=== PATIENT | female | born 1995 | race Caucasian/White ===

== ENCOUNTER 2020-05-10 08:46 | Emergency (ER) | payer OTHER, SELFPAY ==
--- NOTE | ~2020-05-10 | XR_ITS ---
EXAMINATION: XR knee RT min 4V DATE: 05/10/2020 09:31 INDICATION: Possible infection, laceration TECHNIQUE: Four views of the right knee were obtained. COMPARISON: None. FINDINGS: Alignment is normal. No fracture or osteochondral lesion. Joint spaces are normal with no e rosions. No joint effusion/synovitis. Soft tissues are unremarkable. IMPRESSION: 1. No acute osseous abnormality. Reviewed, dictated and finalized at location A.
[2020-05-10 08:53] VITALS: BP 152/88; PULSE 90; RESP 18; TEMP 37.4; O2SAT 100
--- NOTE | 2020-05-10 09:15 | ED.GENADULT ---
HPI - General Adult General Chief complaint: Extremity Injury, Lower Stated complaint: right knee pain/swollen Time Seen by Provider: 05/10/20 09:15 Source: patient and RN notes reviewed Mode of arrival: ambulatory Limitations: no limitations History of Present Illness HPI narrative: 25-year-old female presents with concern for right knee pain, redness, difficulty straightening her knee, knee swelling. She denies recent knee injury, fall. Reports 2 weeks ago she bumped her leg on a coffee table causing a laceration to the right knee. Reports that she did not seek treatment for the laceration, she later reopen the laceration when she bumped it again, then the laceration healed on its own. Reports yesterday morning she noticed redness, pain to the right knee, difficulty straightening the knee. Reports she has been using ice. Denies malaise, fatigue, body aches. Reports the pain radiates up to the mid thigh, down to the mid calf. MD complaint: Right knee pain Related Data Home Medications Medication Instructions Recorded Confirmed No Home Medications 05/10/20 05/10/20 Allergies Allergy/AdvReac Type Severity Reaction Status Date / Time amoxicillin Allergy Rash Verified 05/10/20 09:06 Review of Systems Review of Systems: Narrative: CONSTITUTIONAL: Denies malaise, chills, sweats, or fever. CARDIOVASCULAR: Denies chest pain, palpitations RESPIRATORY: Denies dyspnea. SKIN: Reports right knee any redness, swelling. Denies open skin MUSCULOSKELETAL: Reports right knee pain, difficulty straightening NEUROLOGIC: Denies numbness, weakness. All systems reviewed & are unremarkable except as noted in HPI and below PMFSH Comments At time of signature, agree with nursing past medical, surgical, social and family history. There is no relevant family history pertinent to the presenting complaint Exam Narrative: Exam Narrative: GENERAL: Well-appearing, well-nourished, and in no acute distress. HEAD: Normocephalic, atraumatic. EYES: PERRLA, conjunctivae clear NECK: Supple. CHEST: Speaks in full sentences. No respiratory distress. HEART: Regular rate and rhythm. Normal and equal peripheral pulses. EXTREMITIES: Right knee has normal strength and sensation, limited range of motion, patient unable to fully bend the knee. Right knee edema, erythema. Normal sensation with sensitivity to light touch and pain. No open wounds, no skin tenting, no devitalized tissue or atrophy, no trophic changes, no ecchymosis, no obvious deformity, alignment normal, generalized tenderness, nearby joints and structures intact. Distal pulses palpable and equal bilaterally, skin warm, dry, pink. Capillary refill less than 3 seconds. SKIN: Warm, dry. Right knee erythematous NEURO: Alert and oriented x3. PSYCH: Normal mood and affect Course Course Emergency Course: Patient is aware of diagnosis, understands and agrees to treatment plan. Anticipatory guidance given. Patient agrees to follow-up as directed and is aware of reasons to seek care at the emergency department. Portions of this record may have been created with voice recognition software Vital Signs Vital signs: Vital Signs Temperature 99.3 F 05/10/20 08:53 Pulse Rate 90 05/10/20 08:53 Respiratory Rate 18 05/10/20 08:53 Blood Pressure 152/88 H 05/10/20 08:53 Pulse Oximetry 100 05/10/20 08:53 Temperature 99.3 F 05/10/20 08:53 Pulse Rate 90 05/10/20 08:53 Respiratory Rate 18 05/10/20 08:53 Blood Pressure 152/88 H 05/10/20 08:53 Pulse Oximetry 100 05/10/20 08:53 Reviewed. Patient has been instructed to follow up with her primary care provider within the next week regarding her elevated blood pressure today. Transfer Transfered to: [facility] Transportation: Other (Private vehicle) Transfer rationale: Rule out septic arthritis Accepting physician: Dr. Griffin Transfer comments: Patient stable for transfer via private vehicle Medical Decision Luisa
[2020-05-10 10:05] VITALS: BP 110/80; TEMP 37.4
== END 2020-05-10 10:05 | disposition short-term general hospital (02) ==
PROVIDERS: Emergency Provider Nurse Practitioner
DX: M25.461 Effusion, right knee (principal)
CPT/HCPCS: 73564; 99213; G0463

== ENCOUNTER 2021-05-20 09:19 | Emergency (ER) | payer OTHER, SELFPAY ==
--- NOTE | ~2021-05-20 | CT_ITS ---
EXAMINATION: CTA chest PE protocol DATE: 05/20/2021 10:52 INDICATION: Sudden onset shortness of breath TECHNIQUE: Computed tomography angiography (CTA) of the chest was performed with 100 mL Omnipaque-350 intravenous contrast timed to evaluate the pulmonary arteries. Coronal maximum intensity projection 3D-reconstructions were created by the technologist. The dose-length product (DLP) was 281.64 mGy-cm. Automated exposure control and iterative reconstruction technique were employed. COMPARISON: None. FINDINGS: The pulmonary arteries are well-opacified. No pulmonary embolism is identified. There is mi ld dependent atelectasis. A 3 mm nodule of the right middle lobe likely represents granulomatous dise ase. There is a small hiatal hernia. No pleural effusion or pneumothorax is identified. The heart siz e is normal. Triangular soft tissue in the anterior mediastinum likely represents residual thymus. IMPRESSION: 1. No pulmonary embolism or acute cardiopulmonary abnormality. Reviewed, dictated and finalized at location A.
--- NOTE | ~2021-05-20 | XR_ITS ---
EXAMINATION: XR chest 2V DATE: 05/20/2021 09:50 INDICATION: Shortness of breath TECHNIQUE: Frontal and lateral views of the chest are obtained COMPARISON: None available FINDINGS: The lungs are free of acute opacities. There is no pleural effusion or pneumothorax. The ca rdiomediastinal silhouette is normal. The visualized bones and soft tissues are unremarkable. IMPRESSION: 1. No acute cardiopulmonary abnormality. Reviewed, dictated and finalized at location A.
[2021-05-20 09:25] VITALS: BP 128/63; PULSE 107; RESP 16; O2SAT 100
--- NOTE | 2021-05-20 09:29 | ECG_ITS ---
Measurements Intervals [place] Rate: 86 P: 44 IN: 125 QRS: 39 QRSD: 86 T: 22 QT: 335 QTc: 401 Interpretive Statements SINUS RHYTHM INCOMPLETE RIGHT BUNDLE BRANCH BLOCK BASELINE ARTIFACT- I, II, III, AVR, AVL, AVF, V1, V3-V6 BORDERLINE ECG Electronically Signed On 05-20-2021 11:49:00 CDT by Amauri Ramirez D.O.
[2021-05-20 09:32] VITALS: O2SAT 100
[2021-05-20 09:33] VITALS: PULSE 85
[2021-05-20 09:39] LABS: Basophils Absolute Auto 0.1 K/mm3 (0.0-0.1); Basophils Percent Auto 0.5 % (0.2-1.2); Eosinophils Absolute Auto 0.1 K/mm3 (0-0.3); Eosinophils Percent Auto 0.6 % (0-4.4); Hematocrit 37.4 % (37.0-47.0); Hemoglobin 12.9 g/dL (12.0-15.0); Immature Granulocyte Absolute 0.11 K/mm3 (0.00-0.031); Lymphocytes Absolute Auto 2.15 K/mm3 (0.9-3.2); Mean Corpuscular HGB Conc 34.5 g/dl (32-36); Mean Platelet Volume 11.5 fl (7.4-10.4); Monocytes Absolute Auto 0.5 K/mm3 (0.1-0.6); Monocytes Percent Auto 4.1 % (2.6-8.5); Neutrophils Absolute Auto 8.4 K/mm3 (1.3-6.7); Neutrophils Percent Auto 74.8 % (45.5-73.1); Platelet Count Result 213 k/mm3 (150-375); Red Cell Distribution Width 12.8 % (11.5-14.5); White Blood Count 11.3 K/mm3 (4.5-10.0)
[2021-05-20 09:47] LABS: Anion Gap 10 mmol/L (8-16); Blood Urea Nitrogen 6 mg/dL (7-17); Calcium 9.6 mg/dL (8.4-10.2); Carbon Dioxide 21 mmol/L (22-30); Chloride 105 mmol/L (98-107); Estimated CRCL calculation 153 ml/min; Estimated Glomerular Filt Rate > 60; Glucose 88 mg/dL (65-110); Potassium 4.3 mmol/L (3.4-5.0); Sodium 136 mmol/L (137-145)
[2021-05-20 09:50] LABS: D Dimer 0.53 ug/mL (<0.48)
[2021-05-20] MEDS: SODIUM CHLORIDE 0.9% IV 1,000 ML 999 ML IV CONT (10:36)
[2021-05-20 11:28] LABS: Add Urine Microscopic? YES; Appearance Urine Clear (Clear); Bilirubin Urine Negative (Negative); Blood Urine Negative (Negative); Color Urine Yellow (Yellow); Glucose Urine UA Negative (Negative); Ketones Urine Trace mg/dL (Negative); Leukocyte Esterase Ur 2+ LEU/UL (Negative); Mucus Urine Rare /lpf; Nitrate Urine Negative (Negative); Protein Urine Negative (Negative); RBC Urine 0-2 /hpf (0-2); Specific Grav Ur 1.009 (1.001-1.035); Squamous Epithelial Cell Urine Rare /hpf (Few); Urobilinogen Urine Negative mg/dL (<2.0); WBC Urine 0-3 /hpf
--- NOTE | 2021-05-20 13:14 | ED.SOB ---
HPI - SOB/Dyspnea General Chief Complaint: Shortness of Breath/Dyspnea Stated Complaint: Upper Chest and Neck Pain Time Seen by Provider: 05/20/21 09:40 Source: patient Mode of arrival: ambulatory Limitations: no limitations History of Present Illness HPI Narrative: Patient is a 26-year-old female who presents complaining of sudden onset of shortness of breath starting last p.m. She reports increased shortness of breath with exertion. She reports chest feels sore . She reports a history of Covid approximately 6 months ago, patient is unvaccinated for Covid at this time. Patient is 19 weeks . She denies other significant medical history. She denies taking over the counter medications prior to arrival. Patient's OBGYN is Dr. Beer. LUX elicited complaint: shortness of breath Related Data Home Medications Medication Instructions Recorded Confirmed labetalol 05/20/21 Allergies Allergy/AdvReac Type Severity Reaction Status Date / Time amoxicillin Allergy Rash Verified 05/20/21 09:28 Review of Systems Review of Systems: CONSTITUTIONAL: Denies fever, chills, or sweats. EYES: Denies visual changes, redness, or discharge. ENT: Denies rhinorrhea, congestion, sore throat, or otalgia. CARDIOVASCULAR: Denies chest pain, palpitations, or edema. RESPIRATORY: Reports shortness of breath GASTROINTESTINAL: Denies abdominal pain, nausea, vomiting, or diarrhea. GENITOURINARY: Denies dysuria or hematuria. SKIN: Denies rash or itching. MUSCULOSKELETAL: Denies back pain, joint pain, or myalgia. NEUROLOGIC: Denies headache, numbness, dizziness, or weakness. PSYCHIATRIC: Denies anxiety or depression. [facility] Social History Social History (Updated 05/20/21 @ 13:29 by STELLA Boyd) Smoking status: Never smoker Alcohol intake: never Substance use: never Living arrangements: with family Occupation/Education: occupation Gender identity (if verbalized by the patient): Female Comments At the time of signature, I have reviewed and agree with nursing past medical, surgical, social, and family history unless otherwise noted. Please see nursing chart for further information. There is no relevant family history pertinent to the presenting complaint. Exam Narrative: GENERAL: Well-appearing, well-nourished, and in no acute distress. HEAD: Normocephalic, atraumatic. EYES: EOMI. No redness or drainage. Conjunctiva are normal. ENT: Mucous membranes pink and moist. CHEST: No respiratory distress. Clear to auscultation. HEART: Regular rate and rhythm. No murmur appreciated. Normal peripheral pulses. EXTREMITIES: Normal range of motion. No edema. SKIN: Warm, dry, no rash. NEURO: No focal deficits. Alert and oriented x3. Gait steady. PSYCH: Normal affect. No signs of depression or anxiety. Course Course Emergency Course: Patient has mild leukocytosis. D-dimer elevated. CT chest completed as with patient's complaints, positive D-dimer, initial tachycardia and history of Covid. CT negative for PE at this time. Discussed with patient the need for follow-up with Dr. Hagen. Discussed with Dr. Carter who agrees with plan of care. Patient is stable for discharge home with outpatient follow-up as discussed. Vital Signs Vital signs: Vital Signs Pulse Rate 107 H 05/20/21 09:25 Respiratory Rate 16 05/20/21 09:25 Blood Pressure 128/63 05/20/21 09:25 Pulse Oximetry 100 05/20/21 09:25 Pulse Rate 85 05/20/21 09:33 Respiratory Rate 16 05/20/21 09:25 Blood Pressure 128/63 05/20/21 09:25 Pulse Oximetry 100 05/20/21 09:32 MDM - SOB/Dyspnea MDM Narrative Medical decision making narrative: Patient has mild leukocytosis. D-dimer elevated. CT chest completed as with patient's complaints, positive D-dimer, initial tachycardia and history of Covid. CT negative for PE at this time. Discussed with patient the need for follow-up with Dr. Hagen. Discussed with Dr. Carter who agrees with plan of care. Patient is s
[2021-05-20 13:47] VITALS: BP 128/66; PULSE 82; RESP 18; O2SAT 100
== END 2021-05-20 13:48 | disposition home or self-care (01) ==
PROVIDERS: Emergency Medicine; Emergency Provider Nurse Practitioner
DX: O26.91 Pregnancy related conditions, unspecified, first trimester (principal); R06.02 Shortness of breath; Z3A.19 19 weeks gestation of pregnancy
CPT/HCPCS: 36415; 71046; 71275; 80048; 81001; 85025; 85380; 93005; 96360; 99284; J7030; Q9967

== ENCOUNTER 2021-08-26 15:29 | Outpatient (CLI) | payer OTHER, SELFPAY ==
--- NOTE | ~2021-08-26 | US_ITS ---
EXAMINATION: US right upper quadrant EXAM DATE: 08/26/2021 17:30 INDICATION: RUQ pain, . TECHNIQUE: Multiple grayscale and Doppler images of the abdomen right upper quadrant were obtained (b y a technologist who performed the scan) and subsequently reviewed. There is no prior study for crescencio reich. FINDINGS: The pancreatic head and body are normal in appearance. The pancreatic tail is not visualized. The l iver has normal echogenicity and contour. There are no focal liver lesions identified. There is no evidence of intrahepatic biliary duct dilation. Portal venous flow was seen in the hepatopedal, nor mal direction and has normal Doppler waveform. No right-sided hydronephrosis. Common bile duct measures 3 mm, which is normal. The gallbladder wall is normal in thickness, with ex pected amount of distention. No sonographic evidence of pericholecystic fluid. There is no cholelit hiases. Technologist performing exam reports patient did not demonstrate sonographic Rosas's sign. Please note that this sign is less reliable in patients who have received pain medication. IMPRESSION: 1. Unremarkable abdominal ultrasound exam. Reviewed, dictated and finalized at location A. [employer] INSTRU[employer]
[2021-08-26 16:01] VITALS: BP 142/71; PULSE 98
[2021-08-26 16:10] LABS: Basophils Absolute Auto 0.1 K/mm3 (0.0-0.1); Basophils Percent Auto 0.5 % (0.2-1.2); Eosinophils Absolute Auto 0.1 K/mm3 (0-0.3); Eosinophils Percent Auto 0.7 % (0-4.4); Hematocrit 37.4 % (37.0-47.0); Hemoglobin 13.2 g/dL (12.0-15.0); Immature Granulocyte Absolute 0.36 K/mm3 (0.00-0.031); Immature Granulocyte Percent A 2.2 % (0-0.5); Lymphocytes Absolute Auto 3.82 K/mm3 (0.9-3.2); Lymphocytes Percent Auto 23.7 % (18.3-44.2); Mean Corpuscular HGB Conc 35.3 g/dl (32-36); Mean Corpuscular Hemoglobin 31.7 pg (26-34); Mean Corpuscular Volume 89.7 fl (80-100); Mean Platelet Volume 11.6 fl (7.4-10.4); Monocytes Absolute Auto 0.7 K/mm3 (0.1-0.6); Neutrophils Absolute Auto 11.1 K/mm3 (1.3-6.7); Neutrophils Percent Auto 68.9 % (45.5-73.1); Platelet Count Result 192 k/mm3 (150-375); Red Blood Count 4.17 M/mm3 (4.2-5.4); White Blood Count 16.1 K/mm3 (4.5-10.0)
[2021-08-26 16:14] LABS: Add Urine Microscopic? YES; Amorphous Sediment Urine Few; Appearance Urine Cloudy (Clear); Bacteria Urine Trace /hpf; Bilirubin Urine Negative (Negative); Blood Urine Negative (Negative); Color Urine Straw (Yellow); Glucose Urine UA Negative (Negative); Ketones Urine Negative (Negative); Leukocyte Esterase Ur 3+ LEU/UL (NEGATIVE); Nitrate Urine Negative (Negative); Protein Urine Negative (Negative); RBC Urine 0-2 /hpf (0-2); Specific Grav Ur 1.005 (1.001-1.035); Squamous Epithelial Cell Urine Few /hpf (Few); Urobilinogen Urine Negative mg/dL (<2.0)
[2021-08-26 16:15] VITALS: BP 126/72; PULSE 97
[2021-08-26 16:19] LABS: Total Protein Urine Random 16 mg/dL
[2021-08-26 16:23] LABS: Creatinine Urine 22.5 mg/dL; Ur Ttl Prot Creatinine Ratio 0.71 mg/mg (0-0.20)
[2021-08-26 16:23] LABS: Alanine Aminotransferase 29 U/L (4-35); Alkaline Phosphatase 66 U/L (38-126); Anion Gap 8 mmol/L (8-16); Aspartate Amino Transferase 27 U/L (14-36); Bilirubin,Total 0.4 mg/dL (0.2-1.3); Blood Urea Nitrogen 5 mg/dL (7-17); Calcium 8.9 mg/dL (8.4-10.2); Carbon Dioxide 22 mmol/L (22-30); Chloride 107 mmol/L (98-107); Estimated Glomerular Filt Rate > 60; Glucose 106 mg/dL (65-110); Potassium 3.8 mmol/L (3.4-5.0); Sodium 137 mmol/L (137-145)
[2021-08-26 16:30] VITALS: BP 127/70; PULSE 94
[2021-08-26 16:45] VITALS: BP 132/75; PULSE 89
--- NOTE | 2021-08-26 16:55 | PC.NURSE ---
Addendum entered by Kaylee Moreno RN 08/26/21 17:38: Results called to Dr. Valdivia. Original Note: Called Dr. Hoffman with lab results and BPs. Informed of RUQ pain with waves of increased pain and soreness in between. Orders received.
[2021-08-26 17:00] VITALS: BP 119/71; PULSE 90
== END 2021-08-26 17:50 | disposition home or self-care (01) ==
LOC: ANHOBOP 15:38 → ANHOBPP 15:39
PROVIDERS: Visit Provider Obstetrics & Gynecology
DX: O26.893 Other specified pregnancy related conditions, third trimester (principal); R10.11 Right upper quadrant pain; Z3A.33 33 weeks gestation of pregnancy
CPT/HCPCS: 36415; 59025; 76705; 80053; 81001; 82570; 84156; 84550; 85025; 87086; 99199

== ENCOUNTER 2021-08-27 18:24 | Outpatient (NON) | payer OTHER, SELFPAY ==
[2021-08-27 18:24] VITALS: BMI 31.3
[2021-08-27 19:23] LABS: Collection Time Urine 24 HOURS
[2021-08-27 19:24] LABS: Total Volume 24 Hour Urine 2800 ml
[2021-08-27 19:32] LABS: Creatinine Clearance Urine 170.6 ml/min (75-125); Creatinine Urine 49.9 mg/dL; Patient Weight 194 Lbs; Total Protein Urine 24 Hr 420 mg/24hr (28-141); Total Protein Urine Random 15 mg/dL
[2021-08-27 19:51] LABS: Specific Gravity Ur 1.005
== END 2021-08-27 18:25 | disposition home or self-care (01) ==
LOC: ANHOBOP 18:34
PROVIDERS: Visit Provider Obstetrics & Gynecology Gynecology
DX: R10.11 Right upper quadrant pain (principal)
CPT/HCPCS: 81050; 82575; 84156

== ENCOUNTER 2021-09-11 07:25 | Outpatient (RCR) | payer OTHER, SELFPAY ==
[2021-09-11 08:06] VITALS: BP 120/67
== END 2021-10-30 09:38 | disposition home or self-care (01) ==
LOC: ANHOBOP 07:25
PROVIDERS: Visit Provider Obstetrics & Gynecology
DX: O16.3 Unspecified maternal hypertension, third trimester (principal); Z3A.35 35 weeks gestation of pregnancy
CPT/HCPCS: 59025

== ENCOUNTER 2021-09-23 17:01 | Inpatient (IN) | payer OTHER, SELFPAY ==
[2021-09-23] VITALS (16 sets, daily range): BP systolic 100–144; BP diastolic 68–85; PULSE 83–99; RESP 18; TEMP 37; BMI 33.0
[2021-09-23 17:47] LABS: Hematocrit 38.7 % (37.0-47.0); Hemoglobin 13.5 g/dL (12.0-15.0); Mean Corpuscular HGB Conc 34.9 g/dl (32-36); Mean Corpuscular Hemoglobin 31.3 pg (26-34); Mean Corpuscular Volume 89.6 fl (80-100); Mean Platelet Volume 12.1 fl (7.4-10.4); Platelet Count Result 236 k/mm3 (150-375); Red Blood Count 4.32 M/mm3 (4.2-5.4); Red Cell Distribution Width 12.4 % (11.5-14.5); White Blood Count 16.5 K/mm3 (4.5-10.0)
[2021-09-23] MEDS: DINOPROSTONE 10 MG VAG INSERT VAGINAL (17:48)
[2021-09-23 17:57] LABS: Uric Acid 3.2 mg/dL (2.5-7.5)
[2021-09-23 17:59] LABS: Alanine Aminotransferase 31 U/L (4-35); Albumin Level 3.8 g/dL (3.5-5.1); Alkaline Phosphatase 102 U/L (38-126); Anion Gap 8 mmol/L (8-16); Aspartate Amino Transferase 29 U/L (14-36); Bilirubin,Total 0.4 mg/dL (0.2-1.3); Blood Urea Nitrogen 10 mg/dL (7-17); Calcium 9.2 mg/dL (8.4-10.2); Carbon Dioxide 20 mmol/L (22-30); Chloride 105 mmol/L (98-107); Estimated Glomerular Filt Rate > 60; Glucose 86 mg/dL (65-110); Potassium 3.9 mmol/L (3.4-5.0); Sodium 133 mmol/L (137-145)
[2021-09-23 18:26] LABS: Atypical Lymphocytes Present; Band Neutrophils Percent 3 % (0-6); Eosinophils Absolute Manual 0.16 K/mm3 (0.02-0.5); Eosinophils Percent Manual 1 % (0-4); Lymphocytes Absolute Manual 4.95 K/mm3 (1.1-4.5); Monocytes Absolute Manual 0.82 K/mm3 (0.1-0.90); Monocytes Percent Manual 5 % (3-9); Neutrophils Absolute Manual 10.56 K/mm3 (1.7-7.2); Neutrophils Percent Manual 61 % (46-73); Platelet Estimate Adequate (Adequate); Total Cells Counted 100
--- NOTE | 2021-09-23 18:33 | LDADM ---
This patient, Shanika Gorman, was admitted to Labor/Delivery/Recovery 105 on 09/23/21 at 17:01. Plans for labor, pain management and were discussed with patient. Patient/family oriented to hospital policies and general routines including ID bracelet, bed and alarms, visiting hours, pain management, procedures, bathroom and other care routines, personal items, smoking policy, room service/diet and guest tray routines, security routines, and visiting hours. Patient/Family are encouraged to report perceived risks to care and to ask questions if they do not understand what they are told or what they should do. See OBIX for further documentation.
[2021-09-23] MEDS: LACTATED RINGERS 1,000 ML 125 ML IV CONT (19:07)
[2021-09-23] MEDS: ceFAZolin 2 GM/D5W 50 ML 2 GM/50 ML BAG IVPB (19:08)
[2021-09-24] VITALS (216 sets, daily range): BP systolic 92–155; BP diastolic 48–89; PULSE 67–125; RESP 16–20; TEMP 36.3–36.9; O2SAT 76–100
[2021-09-24] MEDS: fentaNYL CITRATE INJ (*CRX) 100 MCG/2 ML VIAL 50 MCG IV PUSH (02:30)
[2021-09-24] MEDS: OXYTOCIN 30 UNITS/NS 500 ML 30 UNITS/500 ML BAG IV CONT (06:44)
[2021-09-24] MEDS: LACTATED RINGERS 1,000 ML 125 ML IV CONT ×3 (06:44→16:30)
[2021-09-24 07:03] LABS: Rapid Plasma Reagin Non-Reactive (NonReactive)
--- NOTE | 2021-09-24 07:45 | P.HPUP_ITS ---
History and Physical Update Update Date/Time: 09/24/21 07:45 AROM - clear /-1 26 G1 at 37 week with mild CO EE History and Physical has been reviewed, including an updated exam of the patient. There are NO changes in the patient's condition. Risks, benefits, and alternatives have been discussed and questions answered. Patient agrees to proceed with procedure.
[2021-09-24] MEDS: fentaNYL CITRATE INJ (*CRX) 100 MCG/2 ML VIAL IV PUSH (08:17)
[2021-09-24] MEDS: ONDANSETRON INJ 4 MG/2 ML VIAL IV PUSH ×2 (08:53→14:15)
[2021-09-24] MEDS: LABETALOL HCL 100 MG TABLET PO (09:20)
--- NOTE | 2021-09-24 10:13 | WPDANESEPP ---
Anes - Eval Pre Procedure Procedure: labor pain management Date/Time: 09/24/21 10:14 Surgeon: Hieu Preop Diagnosis: Pain during Labor Pre Op Diagnosis: Induction of Labor Patient Data Age: 26 Gender: F Height: 1.68 m Weight: 92.7 kg Last Vital Signs Temp 97.8 F 09/24/21 09:46 Pulse 86 09/24/21 10:12 Resp 20 09/24/21 09:46 BP 108/65 09/24/21 10:12 Pulse Ox 96 09/24/21 10:11 Allergies Allergy/AdvReac Type Severity Reaction Status Date / Time amoxicillin Allergy Rash Verified 09/19/21 15:40 Home Medications Medication Instructions Recorded Confirmed Type labetalol 100 mg PO BID 05/20/21 09/23/21 History prenat.vits,chio,[id number] 1 tablet PO DAILY 09/19/21 09/19/21 History [ #2] Laboratory Tests 09/23/21 09/23/21 09/23/21 17:39 17:39 17:39 WBC 16.5 K/mm3 H K/mm3 (4.5-10.0) RBC 4.32 M/mm3 M/mm3 (4.2-5.4) Hgb 13.5 g/dL g/dL (12.0-15.0) Hct 38.7 % % (37.0-47.0) MCV 89.6 fl fl (80-100) MCH 31.3 pg pg (26-34) MCHC 34.9 g/dl g/dl (32-36) RDW 12.4 % % (11.5-14.5) Plt Count 236 k/mm3 k/mm3 (150-375) MPV 12.1 fl H fl (7.4-10.4) Immature Gran % (Auto) Not Reportable Neut % (Auto) Not Reportable Lymph % (Auto) Not Reportable [place] % (Auto) Not Reportable Eos % (Auto) Not Reportable Baso % (Auto) Not Reportable Lymph # (Auto) Not Reportable [place] # (Auto) Not Reportable Eos # (Auto) Not Reportable Baso # (Auto) Not Reportable Abs Immat Gran (auto) Not Reportable Absolute Neuts (auto) Not Reportable Absolute Nucleated RBC Not Reportable Total Counted 100 Neutrophils % (Manual) 61 % % (46-73) Band Neutrophils % 3 % % (0-6) Lymphocytes % (Manual) 30.0 % % (18-44) Monocytes % (Manual) 5 % % (3-9) Eosinophils % (Manual) 1 % % (0-4) Nucleated RBC % Not Reportable Abs Neuts (Manual) 10.56 K/mm3 H K/mm3 (1.7-7.2) Abs Lymphs (Manual) 4.95 K/mm3 H K/mm3 (1.1-4.5) Abs Monocytes (Manual) 0.82 K/mm3 K/mm3 (0.1-0.90) Absolute Eos (Manual) 0.16 K/mm3 K/mm3 (0.02-0.5) Atypical Lymphocytes Present Platelet Estimate Adequate (Adequate) Sodium Potassium Chloride Carbon Dioxide Anion Gap BUN Creatinine Estim Creat Clear Calc Estimated GFR Glucose Uric Acid 3.2 mg/dL mg/dL (2.5-7.5) Calcium Total Bilirubin AST ALT Alkaline Phosphatase Total Protein Albumin RPR Non-reactive (NonReactive) Blood Type Antibody Screen 09/23/21 09/23/21 17:39 17:39 WBC RBC Hgb Hct MCV MCH MCHC RDW Plt Count MPV Immature Gran % (Auto) Neut % (Auto) Lymph % (Auto) [place] % (Auto) Eos % (Auto) Baso % (Auto) Lymph # (Auto) [place] # (Auto) Eos # (Auto) Baso # (Auto) Abs Immat Gran (auto) Absolute Neuts (auto) Absolute Nucleated RBC Total Counted Neutrophils % (Manual) Band Neutrophils % Lymphocytes % (Manual) Monocytes % (Manual) Eosinophils % (Manual) Nucleated RBC % Abs Neuts (Manual) Abs Lymphs (Manual) Abs Monocytes (Manual) Absolute Eos (Manual) Atypical Lymphocytes Platelet Estimate Sodium 133 mmol/L L m
--- NOTE | 2021-09-24 20:36 | PM.OBPRVD ---
OB - Delivery Note Procedure Delivery date: 09/24/21 Procedure: Vacuum Assisted Vaginal Delivery events: Induced HTN and Pre-Eclampsia Intrapartal events: None Induction method: AROM, per pitocin protocol and per cervidil protocol Delivery monitor: external FHT and internal uterine Route of delivery: vacuum extraction (Indication was Arrest of descent. There were 3 pulls over 3 contractions lasting less than 5 minutes. The baby was +4 station. It was left occiput anterior. It was a kiwi vacuum. There were no pop offs.) Indication for instrumentation: maternal exhaustion Episiotomy description: Midline Delivery repair: vicryl Specimen: Yes Quantitative Blood Loss (ml): 500 Anesthesia type: Epidural Disposition: floor Baby Date of : 09/24/21 Time of : 20:18 Weeks of gestation at delivery: 37 Weight (pounds): 7 Weight (ounces): 5 presentation: vertex position: Left Occiput Anterior Placenta delivery description: Spontaneous cord vessel description: 3 Vessels score one minute: 9 score ten minutes: 9
[2021-09-24] MEDS: OXYTOCIN 30 UNITS/NS 500 ML 30 UNITS/500 ML BAG 125 UNITS IV CONT (20:38)
[2021-09-24] MEDS: IBUPROFEN 600 MG TABLET PO (21:37)
[2021-09-24] MEDS: miSOPROStol 200 MCG TABLET 1000 MCG RECTAL (22:31)
[2021-09-24] MEDS: BENZOCAINE 20% AER SPR (*SP) 56 GM CAN 1 SPRAY TOPICAL (22:39)
[2021-09-24] MEDS: WITCH HAZEL 40 PADS 1 PAD TOPICAL (22:39)
[2021-09-24] MEDS: HYDROcodone/acetaminophen (*CRX) 10-325 MG TABLET 1 TAB PO (22:46)
[2021-09-24] MEDS: LACTATED RINGERS 1,000 ML 999 ML XX (23:53)
[2021-09-24] MEDS: CARBOPROST TROMETHAMINE 250 MCG/ML AMPUL IM (23:53)
[2021-09-25] VITALS (73 sets, daily range): BP systolic 52–145; BP diastolic 34–109; PULSE 79–130; RESP 16–18; TEMP 36.7–37.4; O2SAT 95–100
[2021-09-25] MEDS: LOPERAMIDE HCL 2 MG CAPSULE 4 MG PO
[2021-09-25] MEDS: OXYTOCIN 30 UNITS/NS 500 ML 30 UNITS/500 ML BAG 999 UNITS IV CONT (00:38)
[2021-09-25] MEDS: fentaNYL CITRATE INJ (*CRX) 100 MCG/2 ML VIAL IV PUSH (00:52)
[2021-09-25 01:26] LABS: Hematocrit 26.4 % (37.0-47.0); Hemoglobin 9.3 g/dL (12.0-15.0); Mean Corpuscular HGB Conc 35.2 g/dl (32-36); Mean Corpuscular Hemoglobin 32.3 pg (26-34); Mean Corpuscular Volume 91.7 fl (80-100); Mean Platelet Volume 12.3 fl (7.4-10.4); Platelet Count Result 195 k/mm3 (150-375); Red Blood Count 2.88 M/mm3 (4.2-5.4); Red Cell Distribution Width 12.2 % (11.5-14.5); White Blood Count 25.7 K/mm3 (4.5-10.0)
--- NOTE | 2021-09-25 01:28 | PM.OBPNVD ---
OB - PN: Subj Subjective Date/time seen: 09/25/21 01:28 Called for emergency evaluation of hemorrhage out about 0100. There was light bleeding upon my arrival. The patient was manually explored. There was an abundance of well-organized clot within the intrauterine cavity. Attempt to insert about croup balloon but was unable to due to the firm nature of the clots. Anesthesia was called. Patient was given sedation and explored again. Was able to clear out more clots from the intrauterine cavity. About degree was inserted and about 200 cc of fluid was placed /Distilled into the balloon. there was no bleeding at the end of the placement the valve 3. There was little bleeding throughout the procedure. Patient had lost approximately 3000 mL prior to my arrival. she was stable throughout the procedure. She was stable throughout the sedation. Her blood pressures and pulse were reasonable and stable. Will consider transfusing her with 2 units of packed red blood cells. OB - PN: Obj Data Labs CBC & Chem 7: 09/23/21 17:39 09/23/21 17:39 Labs: Laboratory Results - last 24 hr 09/23/21 17:39 RPR Non-reactive OB - PN A/P Time Spent With Patient Time: Total time spent is greater than 50% in coordination of care (as documented) at patient's floor/unit and/or counseling patient:
--- NOTE | 2021-09-25 01:31 | WPDANLDPN2 ---
Anes-Prog Note L&D Date/Time: 09/25/21 01:07 Post- hemorrhage called for sedation for Bakri balloon insertion. Fentanyl 100 mcg IV @0107; Propofol IVP for total of 160mg throughout. 0125 patient awakened and stable. Neuro status: Neuro function grossly intact. Vital Signs: Last Vital Signs Temp 36.8 C 09/24/21 18:23 Pulse 90 09/25/21 01:30 Resp 18 09/24/21 18:23 BP 122/73 09/25/21 01:30 Pulse Ox 100 09/25/21 01:29 Pain score (VAS): 0/0 I/O: Intake & Output 09/24/21 09/24/21 09/25/21 15:59 23:59 07:59 Intake Total 1000 2300 Output Total 2454 Balance 1000 -154 Post-procedural complaints: other (Post- hemorrhage) Patient feedback: Patient satisfied with anesthetic care.
[2021-09-25 01:41] LABS: INR 1.2; Prothrombin Time 14.8 Seconds (11.1-14.7)
[2021-09-25 01:42] LABS: Partial Thromboplastin Time 29.8 SECONDS (22.3-36.8)
[2021-09-25 01:43] LABS: Fibrinogen 216 mg/dl (215-510)
[2021-09-25 01:45] LABS: D Dimer 1.86 ug/mL (<0.48)
[2021-09-25 01:49] LABS: Band Neutrophils Percent 14 % (0-6); Lymphocytes Absolute Manual 3.08 K/mm3 (1.1-4.5); Monocytes Absolute Manual 1.02 K/mm3 (0.1-0.90); Monocytes Percent Manual 4 % (3-9); Neutrophils Absolute Manual 21.58 K/mm3 (1.7-7.2); Neutrophils Percent Manual 70 % (46-73); Total Cells Counted 100
[2021-09-25 01:50] LABS: Platelet Estimate Adequate (Adequate)
[2021-09-25] MEDS: ceFAZolin 2 GM/D5W 50 ML 2 GM/50 ML BAG IVPB ×2 (04:56→19:24)
[2021-09-25] MEDS: IBUPROFEN 600 MG TABLET PO ×4 (04:58→22:47)
[2021-09-25 05:26] LABS: Hematocrit 22.7 % (37.0-47.0); Hemoglobin 7.9 g/dL (12.0-15.0)
[2021-09-25] MEDS: LACTATED RINGERS 1,000 ML 150 ML IV CONT (05:36)
--- NOTE | 2021-09-25 07:44 | PM.OBPNVD ---
OB - PN: Subj Subjective Date/time seen: 09/25/21 07:44 Patient comments: no complaints baby status: NICU Narrative: Pt feeling ok but has not been out of bed yet d/t balloon. Color good. VSS. OB - PN: Obj Data Labs CBC & Chem 7: 09/25/21 05:00 09/23/21 17:39 Labs: Laboratory Results - last 24 hr 09/23/21 09/25/21 09/25/21 17:39 01:04 01:04 WBC 25.7 H RBC 2.88 L Hgb 9.3 L D Hct 26.4 L MCV 91.7 MCH 32.3 MCHC 35.2 RDW 12.2 Plt Count 195 MPV 12.3 H Immature Gran % (Auto) Not Reportable Neut % (Auto) Not Reportable Lymph % (Auto) Not Reportable [place] % (Auto) Not Reportable Eos % (Auto) Not Reportable Baso % (Auto) Not Reportable Lymph # (Auto) Not Reportable [place] # (Auto) Not Reportable Eos # (Auto) Not Reportable Baso # (Auto) Not Reportable Abs Immat Gran (auto) Not Reportable Absolute Neuts (auto) Not Reportable Absolute Nucleated RBC Not Reportable Total Counted 100 Neutrophils % (Manual) 70 Band Neutrophils % 14 H Lymphocytes % (Manual) 12.0 L Monocytes % (Manual) 4 Nucleated RBC % Not Reportable Abs Neuts (Manual) 21.58 H Abs Lymphs (Manual) 3.08 Abs Monocytes (Manual) 1.02 H Platelet Estimate Adequate PT 14.8 H INR 1.2 APTT 29.8 Fibrinogen 216 D-Dimer 1.86 H Blood Type A Positive Antibody Screen Negative Crossmatch See Detail 09/25/21 05:00 WBC RBC Hgb 7.9 L Hct 22.7 L MCV MCH MCHC RDW Plt Count MPV Immature Gran % (Auto) Neut % (Auto) Lymph % (Auto) [place] % (Auto) Eos % (Auto) Baso % (Auto) Lymph # (Auto) [place] # (Auto) Eos # (Auto) Baso # (Auto) Abs Immat Gran (auto) Absolute Neuts (auto) Absolute Nucleated RBC Total Counted Neutrophils % (Manual) Band Neutrophils % Lymphocytes % (Manual) Monocytes % (Manual) Nucleated RBC % Abs Neuts (Manual) Abs Lymphs (Manual) Abs Monocytes (Manual) Platelet Estimate PT INR APTT Fibrinogen D-Dimer Blood Type Antibody Screen Crossmatch OB - PN A/P Plan day: 1 Plan: routine care (With close post hemorrhage monitoring.) Time Spent With Patient Time: Total time spent is greater than 50% in coordination of care (as documented) at patient's floor/unit and/or counseling patient: Time with patient: less than 15 minutes Review of Systems Review of Systems: All systems reviewed & are unremarkable except as noted in HPI and below Exam Narrative: Vaginal flow controlled. No lower ext redness, warmth, or edema. Negative homans. Const: General: comfortable Chest: Breast/axilla inspection: normal inspection of the breasts Resp: Effort & Inspection: normal respiratory effort Cardio: Rate: regular rate GI: GI Palp: Yes Soft to palpation Psych: Appearance: grossly normal Affect: normal affect Attitude: cooperative Thought content: Yes Normal thought content present Judgement: Good judgement present (Psych)
[2021-09-25] MEDS: SODIUM CHLORIDE 0.9% IV 1,000 ML 30 ML IV CONT (08:41)
--- NOTE | 2021-09-25 08:52 | PC.NURSE ---
0850-RN at bedside with Dr. Hagen. Since FFP is not ready at this time, okay to start PRBCs first per Dr. Hagen.
--- NOTE | 2021-09-25 08:53 | PM.OBPNVD ---
OB - PN: Subj Subjective Date/time seen: 09/25/21 08:53 Patient comments: no complaints, pain well controlled, incisional pain, tolerating diet and flatus present OB - PN: Obj Data Labs CBC & Chem 7: 09/25/21 05:00 09/23/21 17:39 Labs: Laboratory Results - last 24 hr 09/23/21 09/25/21 09/25/21 17:39 01:04 01:04 WBC 25.7 H RBC 2.88 L Hgb 9.3 L D Hct 26.4 L MCV 91.7 MCH 32.3 MCHC 35.2 RDW 12.2 Plt Count 195 MPV 12.3 H Immature Gran % (Auto) Not Reportable Neut % (Auto) Not Reportable Lymph % (Auto) Not Reportable Boyd % (Auto) Not Reportable Eos % (Auto) Not Reportable Baso % (Auto) Not Reportable Lymph # (Auto) Not Reportable Boyd # (Auto) Not Reportable Eos # (Auto) Not Reportable Baso # (Auto) Not Reportable Abs Immat Gran (auto) Not Reportable Absolute Neuts (auto) Not Reportable Absolute Nucleated RBC Not Reportable Total Counted 100 Neutrophils % (Manual) 70 Band Neutrophils % 14 H Lymphocytes % (Manual) 12.0 L Monocytes % (Manual) 4 Nucleated RBC % Not Reportable Abs Neuts (Manual) 21.58 H Abs Lymphs (Manual) 3.08 Abs Monocytes (Manual) 1.02 H Platelet Estimate Adequate PT 14.8 H INR 1.2 APTT 29.8 Fibrinogen 216 D-Dimer 1.86 H Blood Type A Positive Antibody Screen Negative Crossmatch See Detail 09/25/21 05:00 WBC RBC Hgb 7.9 L Hct 22.7 L MCV MCH MCHC RDW Plt Count MPV Immature Gran % (Auto) Neut % (Auto) Lymph % (Auto) Boyd % (Auto) Eos % (Auto) Baso % (Auto) Lymph # (Auto) Boyd # (Auto) Eos # (Auto) Baso # (Auto) Abs Immat Gran (auto) Absolute Neuts (auto) Absolute Nucleated RBC Total Counted Neutrophils % (Manual) Band Neutrophils % Lymphocytes % (Manual) Monocytes % (Manual) Nucleated RBC % Abs Neuts (Manual) Abs Lymphs (Manual) Abs Monocytes (Manual) Platelet Estimate PT INR APTT Fibrinogen D-Dimer Blood Type Antibody Screen Crossmatch OB - PN A/P Assessment and Plan (1) hemorrhage: Code(s): O72.1 - Other immediate hemorrhage Status: Acute Assessment and Plan: minimal bleeding at this time. She has a balkri balloon placed. Will remove balloon later today. We are transfusing 2 units packed red blood cells and 1 unit of FFP. She is well. She appears well. She denies any shortness of breath dizziness. Plan day: 1 Plan: routine care Comments: No problems, routine care Time Spent With Patient Time: Total time spent is greater than 50% in coordination of care (as documented) at patient's floor/unit and/or counseling patient: Exam Const: General: comfortable, no acute distress and alert Resp: Effort & Inspection: normal respiratory effort Auscultation: no crackles, no rales and no rhonchi Cardio: Rate: regular rate Heart sounds: no click, no murmurs and no rubs GI: Inspection: non-distended GI Palp: No Tenderness to palpation present (GI) Auscultation: normal bowel sounds Other: Incision - CDI Extrem: General: normal to inspection, no pedal edema and no calf tenderness
--- NOTE | 2021-09-25 11:07 | WPDANLDPN2 ---
Anes-Prog Note L&D Date/Time: 09/25/21 11:07 Comfortable throughout: labor and delivery Neuraxial method: epidural Epidural/Spinal procedure site: clean & non-tender Neuro status: Neuro function grossly intact. Cardiovascular status: normal Respiratory status: normal Airway patency: baseline Mental status: baseline Post-Op hydration status: normal Vital Signs: Last Vital Signs Temp 37.1 C 09/25/21 10:05 Pulse 91 09/25/21 10:05 Resp 18 09/25/21 10:05 BP 117/65 09/25/21 10:05 Pulse Ox 99 09/25/21 10:05 Pain score (VAS): 0 I/O: Intake & Output 09/24/21 09/25/21 09/25/21 23:59 07:59 15:59 Intake Total 2300 2200 650 Output Total 2454 2507 650 Balance -154 -307 0 Post-procedural complaints: other (Post- hemorrhage) Patient feedback: Patient satisfied with anesthetic care.
[2021-09-25] MEDS: DOCUSATE SODIUM 100 MG CAPSULE PO (15:50)
[2021-09-25] MEDS: POLYSACCHARIDE IRON COMPLEX 150 MG CAPSULE PO (15:50)
--- NOTE | 2021-09-25 17:53 | PM.OBPNVD ---
OB - PN: Subj Subjective Date/time seen: 09/25/21 17:53 Patient comments: no complaints, pain well controlled, incisional pain, tolerating diet and flatus present OB - PN: Obj Data Labs CBC & Chem 7: 09/25/21 05:00 09/23/21 17:39 Labs: Laboratory Results - last 24 hr 09/23/21 09/25/21 09/25/21 17:39 01:04 01:04 WBC 25.7 H RBC 2.88 L Hgb 9.3 L D Hct 26.4 L MCV 91.7 MCH 32.3 MCHC 35.2 RDW 12.2 Plt Count 195 MPV 12.3 H Immature Gran % (Auto) Not Reportable Neut % (Auto) Not Reportable Lymph % (Auto) Not Reportable Edgar % (Auto) Not Reportable Eos % (Auto) Not Reportable Baso % (Auto) Not Reportable Lymph # (Auto) Not Reportable Edgar # (Auto) Not Reportable Eos # (Auto) Not Reportable Baso # (Auto) Not Reportable Abs Immat Gran (auto) Not Reportable Absolute Neuts (auto) Not Reportable Absolute Nucleated RBC Not Reportable Total Counted 100 Neutrophils % (Manual) 70 Band Neutrophils % 14 H Lymphocytes % (Manual) 12.0 L Monocytes % (Manual) 4 Nucleated RBC % Not Reportable Abs Neuts (Manual) 21.58 H Abs Lymphs (Manual) 3.08 Abs Monocytes (Manual) 1.02 H Platelet Estimate Adequate PT 14.8 H INR 1.2 APTT 29.8 Fibrinogen 216 D-Dimer 1.86 H Blood Type A Positive Antibody Screen Negative Crossmatch See Detail 09/25/21 05:00 WBC RBC Hgb 7.9 L Hct 22.7 L MCV MCH MCHC RDW Plt Count MPV Immature Gran % (Auto) Neut % (Auto) Lymph % (Auto) Edgar % (Auto) Eos % (Auto) Baso % (Auto) Lymph # (Auto) Edgar # (Auto) Eos # (Auto) Baso # (Auto) Abs Immat Gran (auto) Absolute Neuts (auto) Absolute Nucleated RBC Total Counted Neutrophils % (Manual) Band Neutrophils % Lymphocytes % (Manual) Monocytes % (Manual) Nucleated RBC % Abs Neuts (Manual) Abs Lymphs (Manual) Abs Monocytes (Manual) Platelet Estimate PT INR APTT Fibrinogen D-Dimer Blood Type Antibody Screen Crossmatch OB - PN A/P Assessment and Plan (1) hemorrhage: Code(s): O72.1 - Other immediate hemorrhage Status: Acute Assessment and Plan: day 1 after uncomplicated course. A hemorrhage occurred hours after delivery. balloon was placed. Balloon was removed today. No acute bleeding at that time. Will continue to observe. Patient has received 2 units packed red blood cells and 1 unit of FFP. Plan day: 1 Plan: routine care Comments: No problems, routine care Time Spent With Patient Time: Total time spent is greater than 50% in coordination of care (as documented) at patient's floor/unit and/or counseling patient: Exam Const: General: comfortable, no acute distress and alert Resp: Effort & Inspection: normal respiratory effort Auscultation: no crackles, no rales and no rhonchi Cardio: Rate: regular rate Heart sounds: no click, no murmurs and no rubs GI: Inspection: non-distended GI Palp: No Tenderness to palpation present (GI) Auscultation: normal bowel sounds Other: Incision - CDI Extrem: General: normal to inspection, no pedal edema and no calf tenderness
--- NOTE | 2021-09-25 18:00 | PC.NURSE ---
[id number] at bedside with Dr. Hagen; Bakri balloon discontinued; patient tolerated well.
--- NOTE | 2021-09-25 19:47 | PC.NURSE ---
The 1300 dose of Ancef (last dose) was delayed today due to patient receiving PRBCs and FFP transfusions.
[2021-09-25] MEDS: WITCH HAZEL 40 PADS 1 PAD TOPICAL (21:10)
[2021-09-25] MEDS: BENZOCAINE 20% AER SPR (*SP) 56 GM CAN 1 SPRAY TOPICAL (21:10)
[2021-09-25] MEDS: ZOLPIDEM TARTRATE (*CRX) 5 MG TABLET PO (22:46)
[2021-09-25] MEDS: ACETAMINOPHEN 325 MG TABLET 650 MG PO (22:47)
[2021-09-26] MEDS: DOCUSATE SODIUM 100 MG CAPSULE PO (03:23)
[2021-09-26 03:30] VITALS: BP 118/79; PULSE 87; RESP 18; TEMP 36.9
[2021-09-26 03:41] LABS: Hematocrit 25.6 % (37.0-47.0); Hemoglobin 8.9 g/dL (12.0-15.0); Mean Corpuscular HGB Conc 34.8 g/dl (32-36); Mean Corpuscular Hemoglobin 30.5 pg (26-34); Mean Corpuscular Volume 87.7 fl (80-100); Platelet Count Result 199 k/mm3 (150-375); Red Blood Count 2.92 M/mm3 (4.2-5.4); Red Cell Distribution Width 13.5 % (11.5-14.5); White Blood Count 14.5 K/mm3 (4.5-10.0)
[2021-09-26] MEDS: IBUPROFEN 600 MG TABLET PO ×2 (04:11→12:41)
[2021-09-26] MEDS: ACETAMINOPHEN 325 MG TABLET 650 MG PO ×2 (04:11→12:41)
--- NOTE | 2021-09-26 08:12 | PM.OBPNVD ---
OB - PN: Subj Subjective Date/time seen: 09/26/21 08:12 Patient comments: no complaints, pain well controlled and tolerating diet OB - PN: Obj Data Labs CBC & Chem 7: 09/26/21 03:16 09/23/21 17:39 Labs: Laboratory Results - last 24 hr 09/23/21 09/26/21 17:39 03:16 WBC 14.5 H RBC 2.92 L Hgb 8.9 L Hct 25.6 L MCV 87.7 MCH 30.5 D MCHC 34.8 RDW 13.5 Plt Count 199 MPV 12.0 H Blood Type A Positive Antibody Screen Negative Crossmatch See Detail OB - PN A/P Plan day: 2 Plan: routine care and discharge home Time Spent With Patient Time: Total time spent is greater than 50% in coordination of care (as documented) at patient's floor/unit and/or counseling patient: Exam Const: General: comfortable and no acute distress Resp: Effort & Inspection: normal respiratory effort Auscultation: no rales, no rhonchi and no wheezes Cardio: Rate: regular rate Heart sounds: no click, no murmurs and no rubs GI: GI Palp: Yes Soft to palpation and No Tenderness to palpation present (GI) Auscultation: normal bowel sounds Extrem: General: normal to inspection, no pedal edema and no calf tenderness
--- NOTE | 2021-09-26 08:12 | PM.OBDSVD ---
DS: Admitting Diagnosis Discharge Date 09/26/2021 Admitting Diagnosis term , preeclampsia DS: Discharge Diagnosis Discharge Diagnosis (1) hemorrhage: Code(s): O72.1 - Other immediate hemorrhage Status: Acute (2) induced hypertension: Code(s): O13.9 - Gestational [-induced] hypertension without significant proteinuria, unspecified trimester Status: Acute (3) : Code(s): Z34.90 - Encounter for supervision of normal , unspecified, unspecified trimester Status: Acute OB - DS: Summary OB Procedures : None OB Procedures Intrapartum: Spontaneous Vag Delivery OB Procedures: : None Peripartum Data Infant Delivery Method: Natural Vaginal Time Spent with Patient Time attestation: Total time spent providing and/or coordinating discharge services: DS: Data Data Completed and Pending Pending studies at discharge: Pending at discharge 09/24/21 20:21 Surgical [PTH] Routine Labs on day of discharge: Labs from last 24 hours 09/26/21 09/23/21 03:16 17:39 WBC 14.5 H RBC 2.92 L Hgb 8.9 L Hct 25.6 L MCV 87.7 MCH 30.5 D MCHC 34.8 RDW 13.5 Plt Count 199 MPV 12.0 H Blood Type A Positive Antibody Screen Negative Crossmatch See Detail Discharge Plan Discharge Attending physician on discharge: Donna Hagen Discharging Clinician: Donna Hagen Patient Disposition: Home, Self-Care Activity: pelvic rest Diet: regular Patient Instructions: Antibiotic Form Stand Alone Forms: General Discharge Information Follow-up/Referrals: Donna Hagen MD [Physician] - Discharge Medications: Continued labetalol 100 mg tablet 100 mg PO BID RF: 0 #2 Tablet 1 tablet PO DAILY RF: 0 Date of admission: 09/23/21 17:01 Primary Care Provider: PHYSICIAN,POSTDOCTORAL SCIENTIST Admitting Provider: Donna Hagen Attending physician on admission: Donna Hagen Condition: Stable
[2021-09-26 08:35] VITALS: BP 113/60; PULSE 86; RESP 16; TEMP 36.5; O2SAT 99
[2021-09-26] MEDS: POLYSACCHARIDE IRON COMPLEX 150 MG CAPSULE PO (10:07)
[2021-09-26] MEDS: MULTIVIT/MIN/PREN/FOL AC/IRON TABLET 1 TAB PO (10:07)
--- NOTE | 2021-09-26 10:26 | PC.NURSE ---
Epidural removed without difficulty; patient tolerated well.
--- NOTE | 2021-09-26 10:46 | PC.NURSE ---
Patient was given the opportunity to view the discharge video Mother & Baby Care, The First Two Weeks and to ask questions. Patient declined viewing the video and has been given the mother/baby guide for home reference.
[2021-09-27 07:58] VITALS: BP 120/62; PULSE 93; RESP 20; TEMP 36.7; O2SAT 100
== END 2021-09-26 13:17 | disposition home or self-care (01) | DRG 768 ==
LOC: ANHLDR 17:04 → ANHOB2 09-25 04:12
PROVIDERS: Admitting Provider Obstetrics & Gynecology; Visit Provider Obstetrics & Gynecology
DX: O13.4 Gestational [pregnancy-induced] hypertension without significant proteinuria, complicating childbirth (principal); Z37.0 Single live birth; O14.04 Mild to moderate pre-eclampsia, complicating childbirth; O62.1 Secondary uterine inertia; O72.1 Other immediate postpartum hemorrhage; O99.824 Streptococcus B carrier state complicating childbirth; Z3A.37 37 weeks gestation of pregnancy
CPT/HCPCS: 36415; 36430; 80053; 84550; 85014; 85018; 85025; 85027; 85380; 85384; 85610; 85730; 86592; 86850; 86900; 86901; 86920; 88307; A9270; J0690; J2405; J2590; J3010; J7030; J7120; P9016; P9017